=== PATIENT | male | born 1990 | race African-American/Black ===

== ENCOUNTER 2017-07-04 15:08 | Emergency (ER) | payer MEDICAID, OTHER ==
[~2017-07-04] VITALS: Ht 185.4 cm; Wt 65.9 kg
[~2017-07-04 15:08] MED LIST: NOCURR
[2017-07-04] MEDS ORDERED: IBUPROFEN 800 MG TABLET PO ONE (16:15)
[2017-07-04] MEDS ORDERED: DiphenhydrAMINE HCL 25 MG CAPSULE PO ONE (16:15)
[2017-07-04] MEDS ORDERED: CEPHALEXIN MONOHYDRATE 500 MG CAPSULE PO ONE (16:15)
[2017-07-04 16:48] VITALS: BP 120/63
== END 2017-07-04 16:50 | disposition home or self-care (01) ==
LOC: EMS 15:09
DX: M79.641 Pain in right hand (principal); L25.9 Unspecified contact dermatitis, unspecified cause; M79.89 Other specified soft tissue disorders; F17.210 Nicotine dependence, cigarettes, uncomplicated
CPT/HCPCS: 99284; 99406

== ENCOUNTER 2021-04-02 15:20 | Emergency (ER) | payer MEDICAID ==
[~2021-04-02] VITALS: Ht 185.4 cm; Wt 65.9 kg
[2021-04-02 15:57] VITALS: BP 134/87
[2021-04-02] MEDS ORDERED: PERTUSS(ACELL),DIPH,TET VAC/PF 0.5 ML SYRINGE IM. ONE (17:45)
[2021-04-02] MEDS ORDERED: BACITRACIN 0.9 GM PACKET OINTMENT TP ONE (19:00)
[2021-04-02] MEDS ORDERED: LIDOCAINE 5% TRANSDERMAL PATCH TD ONE (20:00)
[2021-04-02] MEDS ORDERED: IBUPROFEN 600 MG TABLET PO ONE (20:00)
[2021-04-02] MEDS ORDERED: METHOCARBAMOL 500 MG TABLET PO ONE (20:00)
== END 2021-04-02 20:30 | disposition home or self-care (01) ==
LOC: EMS 15:21
DX: S80.11XA Contusion of right lower leg, initial encounter (principal); F12.90 Cannabis use, unspecified, uncomplicated; F17.210 Nicotine dependence, cigarettes, uncomplicated; V49.49XA Driver injured in collision with other motor vehicles in traffic accident, initial encounter; Y93.89 Activity, other specified; Y92.89 Other specified places as the place of occurrence of the external cause; Y99.8 Other external cause status
CPT/HCPCS: 70450; 72125; 90471; 90715; 99284

== ENCOUNTER 2024-07-03 13:43 | Emergency (ER) | payer MEDICAID ==
[~2024-07-03] VITALS: Ht 185.4 cm; Wt 68.0 kg
[2024-07-03] MEDS ORDERED: OLAN10TA74 PO (13:51)
[2024-07-03 13:58] VITALS: TEMP 98.2
[2024-07-03 14:33] LABS: COVID AG,FIA SOURCE NASAL SWAB
[2024-07-03 14:33] LABS: BASOPHILS % (AUTO) 0.8 % (0.0-2.0); HEMATOCRIT 38.8 % (41-53); HEMOGLOBIN 12.2 g/dL (13.5-17.5); LYMPHOCYTES % (AUTO) 35.3 % (22.0-44.0); MEAN CORPUSCULAR HEMOGLOBIN 24.3 pg (26.0-34.0); MEAN CORPUSCULAR HGB CONC 31.5 G/dL (31.0-37.0); MEAN CORPUSCULAR VOLUME 77 fL (80-100); MONOCYTES # (AUTO) 0.6 K/uL (0.1-1.0); MONOCYTES % (AUTO) 11.6 % (2.0-9.0); NEUTROPHILS # (AUTO) 2.6 K/uL (1.8-7.7); NEUTROPHILS % (AUTO) 47.3 % (40.0-70.0); PLATELET COUNT (AUTO) 272 K/uL (150-450); RED BLOOD CELL COUNT(AUTO) 5.04 MIL/uL (4.50-5.90); RED CELL DISTRIBUTION WIDTH 15.7 % (11.5-14.5); WHITE BLOOD COUNT (AUTO) 5.6 K/uL (4.5-11.0)
[2024-07-03 14:38] LABS: PH,URINE DRUG SCREEN 6.5 (5.0-8.0)
[2024-07-03 14:43] LABS: ANION GAP 6 mmol/L (8-16); CALCIUM, TOTAL 8.8 mg/dL (8.8-10.5); CARBON DIOXIDE 31 mmol/L (22-29); CHLORIDE 102 mmol/L (98-107); GLOMERULAR FILTR. RATE CALC > 60 mL/min (>60); GLUCOSE,RANDOM 92 mg/dL (70-110); POTASSIUM 3.8 mmol/L (3.5-5.1); SODIUM SERUM 139 mmol/L (136-145); UREA NITROGEN, BLOOD 19 mg/dL (7-18)
[2024-07-03 14:44] LABS: ALCOHOL, URINE DRUG SCREEN NEGATIVE (NEGATIVE); AMPHET/METH SCREEN,URINE POSITIVE (NEGATIVE); BARBITURATE SCREEN, URINE NEGATIVE (NEGATIVE); BENZODIAZEPINES SCREEN,URINE NEGATIVE (NEGATIVE); CANNABINOID SCREEN,URINE POSITIVE (NEGATIVE); COCAINE SCREEN,URINE POSITIVE (NEGATIVE); METHADONE SCREEN, URINE NEGATIVE (NEGATIVE); OPIATE SCREEN,URINE NEGATIVE (NEGATIVE); PHENCYCLIDINE SCREEN,URINE NEGATIVE (NEGATIVE)
[2024-07-03] MEDS: HALOPERIDOL 5 MG TABLET PO ONE (14:47)
[2024-07-03] MEDS ORDERED: HALO5TAB23 PO (14:49)
[2024-07-03 14:51] LABS: ALCOHOL, BLOOD (SERUM) < 3 mg/dL (0-10)
[2024-07-03 14:54] LABS: SARS-COV2 (COVID) ANTIGEN,FIA Negative (Negative)
[2024-07-03 14:58] VITALS: BP 155/83; PULSE 84; RESP 19; O2SAT 99
== END 2024-07-03 15:10 | disposition home or self-care (01) ==
LOC: EMS 13:45
DX: F20.9 Schizophrenia, unspecified (principal); F15.10 Other stimulant abuse, uncomplicated; F12.90 Cannabis use, unspecified, uncomplicated; F17.210 Nicotine dependence, cigarettes, uncomplicated; Z90.49 Acquired absence of other specified parts of digestive tract; Z20.822 Contact with and (suspected) exposure to COVID-19
CPT/HCPCS: 99284; 87426; 80048; 85025; 36415; 80307; G0480

== ENCOUNTER 2024-09-01 13:07 | Emergency (ER) | payer MEDICAID ==
[~2024-09-01] VITALS: Ht 185.4 cm; Wt 75.0 kg
[~2024-09-01 13:07] MED LIST changes: +HALO5TAB23 PO; -NOCURR; +OLAN10TA74 PO
[2024-09-01 13:16] VITALS: TEMP 98.8
[2024-09-01 16:10] LABS: BASOPHILS % (AUTO) 0.4 % (0.0-2.0); EOSINOPHILS % (AUTO) 1.6 % (1.0-6.0); HEMATOCRIT 44.3 % (41-53); HEMOGLOBIN 14.1 g/dL (13.5-17.5); LYMPHOCYTES # (AUTO) 1.1 K/uL (1.0-4.8); LYMPHOCYTES % (AUTO) 15.1 % (22.0-44.0); MEAN CORPUSCULAR HEMOGLOBIN 24.3 pg (26.0-34.0); MEAN CORPUSCULAR HGB CONC 31.7 G/dL (31.0-37.0); MEAN CORPUSCULAR VOLUME 77 fL (80-100); MONOCYTES # (AUTO) 0.5 K/uL (0.1-1.0); MONOCYTES % (AUTO) 6.8 % (2.0-9.0); NEUTROPHILS # (AUTO) 5.7 K/uL (1.8-7.7); NEUTROPHILS % (AUTO) 76.1 % (40.0-70.0); PLATELET COUNT (AUTO) 235 K/uL (150-450); RED BLOOD CELL COUNT(AUTO) 5.78 MIL/uL (4.50-5.90); WHITE BLOOD COUNT (AUTO) 7.5 K/uL (4.5-11.0)
[2024-09-01 16:18] LABS: ANION GAP 13 mmol/L (8-16); CALCIUM, TOTAL 8.8 mg/dL (8.8-10.5); CARBON DIOXIDE 22 mmol/L (22-29); CHLORIDE 101 mmol/L (98-107); CREATININE 1.18 mg/dL (0.60-1.30); GLOMERULAR FILTR. RATE CALC > 60 mL/min (>60); GLUCOSE,RANDOM 82 mg/dL (70-110); SODIUM SERUM 136 mmol/L (136-145); UREA NITROGEN, BLOOD 25 mg/dL (7-18)
[2024-09-01] MEDS: SODIUM CHLORIDE 0.9% 1,000 ML IV ONE (16:30)
[2024-09-01] MEDS: FAMOTIDINE 20 MG/2 ML VIAL IVP ONE (16:30)
[2024-09-01 17:04] LABS: COVID AG,FIA SOURCE NASAL SWAB
[2024-09-01 17:25] LABS: APPEARANCE,URINE HAZY (CLEAR); BILIRUBIN,URINE NEGATIVE (NEGATIVE); COLOR,URINE LIGHT ORANGE (YELLOW); GLUCOSE, URINE (UA) NEGATIVE (NEGATIVE); KETONES,URINE TRACE mg/dL (NEGATIVE); LEUKOCYTE ESTERASE ,URINE SMALL (NEGATIVE); NITRATE,URINE NEGATIVE (NEGATIVE); OCCULT BLOOD,URINE LARGE (NEGATIVE); PH,URINE 5.5 (5.0-8.0); PH,URINE DRUG SCREEN 5.5 (5.0-8.0); PROTEIN,URINE 100-200,SEE CONFIRM mg/dL (NEGATIVE); SPECIFIC GRAVITIY, URINE 1.023 (1.003-1.030); UROBILINOGEN,URINE <=1.0 mg/dL (<=1.0)
[2024-09-01 17:29] LABS: ALCOHOL, URINE DRUG SCREEN POSITIVE (NEGATIVE); AMPHET/METH SCREEN,URINE POSITIVE (NEGATIVE); BARBITURATE SCREEN, URINE NEGATIVE (NEGATIVE); BENZODIAZEPINES SCREEN,URINE NEGATIVE (NEGATIVE); CANNABINOID SCREEN,URINE POSITIVE (NEGATIVE); COCAINE SCREEN,URINE NEGATIVE (NEGATIVE); METHADONE SCREEN, URINE NEGATIVE (NEGATIVE); OPIATE SCREEN,URINE NEGATIVE (NEGATIVE); PHENCYCLIDINE SCREEN,URINE NEGATIVE (NEGATIVE)
[2024-09-01 17:36] LABS: SULFOSALICYLIC ACID,URINE 4+ (Negative)
[2024-09-01 17:39] LABS: RBC,URINE 51-100 /HPF (0-2)
[2024-09-01 17:40] LABS: BACTERIA,URINE Rare /HPF (None Seen); SQUAMOUS EPITHELIAL CELL,UR Few /LPF (None Seen); YEAST,URINE None Seen /HPF (None Seen)
[2024-09-01 17:43] LABS: SARS-COV2 (COVID) ANTIGEN,FIA Negative (Negative)
[2024-09-01] MEDS: OLANZapine 5 MG TABLET PO ONE (21:38)
[2024-09-01 22:38] VITALS: BP 131/97; PULSE 75; RESP 15; O2SAT 99
[2024-09-01] MEDS ORDERED: CEPH-558 PO (23:20)
[2024-09-01] MEDS ORDERED: ACETAMINOPHEN 325 MG TABLET PO PRN (23:30)
[2024-09-01] MEDS ORDERED: LORazepam 2 MG/ML VIAL IVP PRN (23:30)
[2024-09-01] MEDS ORDERED: OxyCODONE HCL/ACETAMINOPHEN 5-325 MG TABLET PO PRN (23:30)
[2024-09-01] MEDS ORDERED: ONDANSETRON HCL 4 MG/2 ML VIAL IVP PRN (23:30)
[2024-09-01] MEDS ORDERED: ZOLPIDEM TARTRATE 5 MG TABLET PO PRN (23:30)
[2024-09-01] MEDS: CEPHALEXIN MONOHYDRATE 500 MG CAPSULE PO ONE (23:33)
[2024-09-02] MEDS ORDERED: 1: MAGNESIUM SULFATE 2 GM, MVI, ADULT NO.1 WITH VIT K 10 ML, THIAMINE 100 MG, FOLIC ACID IV SCH
[2024-09-02] MEDS ORDERED: DOCUSATE SODIUM 100 MG CAPSULE PO SCH (09:00)
[2024-09-02] MEDS ORDERED: FAMOTIDINE 20 MG TABLET PO SCH (09:00)
[2024-09-03] MEDS ORDERED: POLY119P3 PO (13:25)
== END 2024-09-02 02:15 | disposition home or self-care (01) ==
LOC: EMS 13:07
DX: F20.9 Schizophrenia, unspecified (principal); F15.10 Other stimulant abuse, uncomplicated; F10.129 Alcohol abuse with intoxication, unspecified; F17.210 Nicotine dependence, cigarettes, uncomplicated; F12.90 Cannabis use, unspecified, uncomplicated; Z90.49 Acquired absence of other specified parts of digestive tract; Z20.822 Contact with and (suspected) exposure to COVID-19; Z79.899 Other long term (current) drug therapy; Y90.6 Blood alcohol level of 120-199 mg/100 ml
CPT/HCPCS: 99285; 74176; 87426; 80048; 81001; 85025; 36415; 80307; G0480; 81002; J3411; J3475; J3490; J7030

== ENCOUNTER 2024-09-03 11:49 | Emergency (ER) | payer MEDICAID ==
[~2024-09-03] VITALS: Ht 185.4 cm; Wt 77.3 kg
[~2024-09-03 11:49] MED LIST changes: +CEPH-558 PO
[2024-09-03] MEDS ORDERED: POLY119P3 PO (13:25)
[2024-09-03 13:45] VITALS: BP 122/74; PULSE 72; RESP 16; TEMP 98.005280; O2SAT 99
== END 2024-09-03 13:46 | disposition home or self-care (01) ==
LOC: EMS 11:49
DX: K59.00 Constipation, unspecified (principal); F15.10 Other stimulant abuse, uncomplicated; F12.90 Cannabis use, unspecified, uncomplicated; F17.210 Nicotine dependence, cigarettes, uncomplicated; F10.90 Alcohol use, unspecified, uncomplicated; Z96.0 Presence of urogenital implants; Z90.49 Acquired absence of other specified parts of digestive tract; Z79.899 Other long term (current) drug therapy; Y90.9 Presence of alcohol in blood, level not specified
CPT/HCPCS: 99282; Z7502